=== PATIENT | male | born 1985 | race Two or more races ===

== ENCOUNTER 2020-01-20 10:26 | Emergency (ER) | payer MEDICAID ==
[~2020-01-20] VITALS: Ht 177.8 cm; Wt 113.4 kg
[2020-01-20 10:36] VITALS: BP 130/75
[2020-01-20] MEDS ORDERED: KETOROLAC TROMETH 60MG/2ML VIAL IM ONE (11:45)
== END 2020-01-20 13:13 | disposition home or self-care (01) ==
LOC: ER 10:26
DX: S83.8X1A Sprain of other specified parts of right knee, initial encounter (principal); S86.811A Strain of other muscle(s) and tendon(s) at lower leg level, right leg, initial encounter; X58.XXXA Exposure to other specified factors, initial encounter; Y93.89 Activity, other specified; Y92.89 Other specified places as the place of occurrence of the external cause; Y99.8 Other external cause status
CPT/HCPCS: 73562; 73590; 93971; 96372; 99284; J1885